=== PATIENT | male | born 1990 | race Caucasian/White ===

== ENCOUNTER 2023-12-22 00:12 | Emergency (ER) | payer OTHER ==
[~2023-12-22] VITALS: Ht 177.8 cm; Wt 97.3 kg
[2023-12-22] MEDS: PENICILLIN V POTASSIUM 500 MG TAB PO ONE (04:05)
[2023-12-22] MEDS ORDERED: MAGICMW SS (04:06)
[2023-12-22] MEDS ORDERED: PENI500T PO (04:06)
[2023-12-22] MEDS: MAGIC MOUTHWASH 5ML ORAL SYRINGE SS ONE (04:20)
[2023-12-22 04:27] VITALS: BP 122/66; TEMP 99; O2SAT 95
== END 2023-12-22 04:28 | disposition home or self-care (01) ==
LOC: M ED 00:12
DX: J02.0 Streptococcal pharyngitis (principal); B34.8 Other viral infections of unspecified site; Z88.1 Allergy status to other antibiotic agents; Z79.2 Long term (current) use of antibiotics